=== PATIENT | male | born 1940 | race Caucasian/White ===

== ENCOUNTER 2017-12-12 06:14 | Emergency (ER) | payer MEDICARE ==
[~2017-12-12] VITALS: Ht 188 cm; Wt 102.1 kg
[~2017-12-12 06:14] MED LIST: HYDACE5325 PO
[2017-12-12 06:48] LABS: BASOPHILS ABSOLUTE AUTO 0.04 K/mm3 (0.00-0.23); BASOPHILS PERCENT AUTO 1 % (0-2); EOSINOPHILS ABSOLUTE AUTO 0.11 K/mm3 (0.00-0.68); EOSINOPHILS PERCENT AUTO 2 % (0-6); Hematocrit 44.3 % (37.0-53.0); Hemoglobin 15.2 g/dL (13.5-17.5); IMMATURE GRAN ABSOLUTE AUTO 0.03 K/mm3 (0.00-0.10); IMMATURE GRAN PERCENT AUTO 0 % (0-1); LYMPHOCYTES ABSOLUTE AUTO 1.22 K/mm3 (0.84-5.20); LYMPHOCYTES PERCENT AUTO 16 % (21-46); MONOCYTES ABSOLUTE AUTO 0.62 K/mm3 (0.16-1.47); MONOCYTES PERCENT AUTO 8 % (4-13); Mean Corpuscular HGB 31.8 pg (26.0-34.0); Mean Corpuscular HGB Conc 34.3 g/dL (31.5-36.5); Mean Corpuscular Volume 93 fL (80-100); Mean Platelet Volume 10.5 fL (9.1-12.4); NEUTROPHILS ABSOLUTE AUTO 5.41 K/mm3 (1.96-9.15); NEUTROPHILS PERCENT AUTO 73 % (41-73); Platelet Count 200 K/mm3 (150-400); RDW Coefficient Variation 12.3 % (11.7-14.2); RDW Standard Deviation 42.3 fL (35.1-46.3); Red Blood Cell Count 4.78 M/mm3 (4.30-5.90); White Blood Cell Count 7.43 K/mm3 (4.00-11.30)
[2017-12-12 07:08] LABS: Alanine Aminotransfer (ALT/SGP 38 U/L (12-78); Albumin/Globulin Ratio 1.1 (0.8-1.8); Alk Phos 98 U/L (50-136); Anion Gap 9 mmol/L (6-16); Aspartate Aminotrans (AST/SGOT 18 U/L (12-37); Bilirubin, Total 0.3 mg/dL (0.1-1.0); Blood Urea Nitrogen 20 mg/dL (8-24); Bun/Creatinine Ratio 20.6 (12.0-20.0); CO2, Blood 24 mmol/L (21-32); Calcium, Blood 9.1 mg/dL (8.5-10.1); Chloride, Blood 109 mmol/L (98-108); Creatinine, Blood 0.97 mg/dL (0.60-1.20); Globulin, Blood 3.7 g/dL (2.2-4.0); Glomerular Filtration Rate >60 (60-); Glucose, Blood 117 mg/dL (70-99); Potassium, Blood 3.8 mmol/L (3.5-5.5); Sodium, Blood 142 mmol/L (136-145); Total Protein, Blood 7.7 g/dL (6.4-8.2); Troponin I <0.015 ng/mL (0.000-0.040)
[2017-12-12] MEDS ORDERED: Protonix40 MG PO (10:47)
[2017-12-12] MEDS ORDERED: Norco 5-325 Ta1 EACH PO (10:47)
== END 2017-12-12 11:30 | disposition home or self-care (01) ==
LOC: ER 06:14
PROVIDERS: Emergency Medicine
DX: K21.9 Gastro-esophageal reflux disease without esophagitis (principal); M51.34 Other intervertebral disc degeneration, thoracic region; K44.9 Diaphragmatic hernia without obstruction or gangrene
CPT/HCPCS: 36415; 71046; 71260; 80053; 84484; 85025; 93005; 93010; 96374; 96375; 96376; 99284; J2270; J2405; J3010; Q9967

== ENCOUNTER → 2017-12-31 | Outpatient (CLI) | payer MEDICARE ==
[~2017-12-31] MED LIST changes: +Norco 5-325 Ta1 EACH PO; +Protonix40 MG PO
== END | disposition home or self-care (01) ==
LOC: LAB 14:31 → LAB SHORT 14:31
DX: D36.10 Benign neoplasm of peripheral nerves and autonomic nervous system, unspecified (principal)
CPT/HCPCS: 88305

== ENCOUNTER → 2018-08-04 | Outpatient (CLI) | payer MEDICARE | END | disposition home or self-care (01) | LOC: LAB SHORT 09:56 → PLD 09:56 | DX: D48.5 Neoplasm of uncertain behavior of skin (principal) | CPT/HCPCS: 88305 ==

== ENCOUNTER 2019-09-29 06:40 | Day surgery (SDC) | payer MEDICARE ==
[~2019-09-29] VITALS: Ht 185.4 cm; Wt 106.5 kg
== END 2019-09-29 09:08 | disposition home or self-care (01) ==
LOC: ORSCSDS 06:40
PROVIDERS: Internal Medicine Gastroenterology
PROC: 0DBK8ZX Excision of Ascending Colon, Via Natural or Artificial Opening Endoscopic, Diagnostic (ICD-10-PCS; principal; 2019-09-29 08:00)
PROC: 0DBH8ZX Excision of Cecum, Via Natural or Artificial Opening Endoscopic, Diagnostic (ICD-10-PCS; principal; 2019-09-29 08:00)
PROC: 0DBM8ZX Excision of Descending Colon, Via Natural or Artificial Opening Endoscopic, Diagnostic (ICD-10-PCS; principal; 2019-09-29 08:00)
DX: Z80.0 Family history of malignant neoplasm of digestive organs (principal); Z86.010 Personal history of colon polyps; Z12.11 Encounter for screening for malignant neoplasm of colon; D12.2 Benign neoplasm of ascending colon; D12.0 Benign neoplasm of cecum; D12.4 Benign neoplasm of descending colon; K57.30 Diverticulosis of large intestine without perforation or abscess without bleeding; Z87.891 Personal history of nicotine dependence; E78.5 Hyperlipidemia, unspecified; E11.51 Type 2 diabetes mellitus with diabetic peripheral angiopathy without gangrene
CPT/HCPCS: 88305; J0330; J0461; J2405; J2704; J7120

== ENCOUNTER → 2020-01-25 | Outpatient (CLI) | payer MEDICARE ==
[~2020-01-25] MED LIST changes: +ASPI81CH PO; +METO50ER PO
== END | disposition home or self-care (01) ==
LOC: LAB SHORT 11:40 → PLD 11:40
DX: D22.5 Melanocytic nevi of trunk (principal)
CPT/HCPCS: 88305

== ENCOUNTER 2020-01-27 06:53 | Day surgery (SDC) | payer MEDICARE ==
[~2020-01-27] VITALS: Ht 185.4 cm; Wt 104.0 kg
--- NOTE | 2020-01-27 12:02 | NUR ---
1130 PATIENT SITTING UP IN RECLINER CHAIR, AAOX3, VVS, SINUS MANJINDER WITH PVC NOTED. ARM BOARD AND TR BAND IN PLACE TO THE [facility] RAD[facility]. PATIENT INSTRUCTED NOT TO USES THE RIGHT ARM. NO PAIN NOTED FROM THE PATIENT.
--- NOTE | 2020-01-27 12:03 | NUR ---
1200 LUNCH SERVED AND PATIENT FEEDING SELF. ENCOURAGED NOT TO USE RIGHT WRIST TO FEED SELF.
--- NOTE | 2020-01-27 13:01 | NUR ---
10 CC OF AIR REMOVED OUT OF NOW DEFLATED RIGHT TR BAND OVER 15 MINUTES. SOFT WITH NO HEMATOMA AND NO PULSATILE BLEEDING. RIGHT RADIAL CARE INSTRUCTIONS REVIEWED WITH PT. CALL LIGHT IN REACH.
--- NOTE | 2020-01-27 13:10 | NUR ---
NO CHANGES TO DEFLATED RIGHT TR BAND SITE.
--- NOTE | 2020-01-27 13:58 | NUR ---
1345 PATIENT UP TO THE RESTROOM AND DRESSED SELF. ALL BELONGINGS GATHERED BY PATIENT. PIV REMOVED FROM THE LEFT AC AND TR BAND REMOVED, SITE CLEANED AND CLOTH DOT PLACED. NO HEMATOMA, NO BLEEDING, NO PAIN NOTED. NO BRUISING NOTED. REVIEWED AGAIN DISCHARGE INSTRUCTIONS, LIMITS ON MOVEMENT AND LIFTING. REPLACED WHITE ARMBOARD TO REMIND PATIENT NOT TO USE THE ARM FOR THE REST OF TODAY. DISCHARGE VIA WHEELCHAIR TO PRIVATE VEHICLE TO HOME.
== END 2020-01-27 14:00 | disposition home or self-care (01) ==
LOC: MHTC 06:53
PROC: B201YZZ Plain Radiography of Multiple Coronary Arteries using Other Contrast (ICD-10-PCS; principal; 2020-01-27)
PROC: 4A023N7 Measurement of Cardiac Sampling and Pressure, Left Heart, Percutaneous Approach (ICD-10-PCS; principal; 2020-01-27)
DX: I49.3 Ventricular premature depolarization (principal); I50.20 Unspecified systolic (congestive) heart failure; E78.5 Hyperlipidemia, unspecified; I34.0 Nonrheumatic mitral (valve) insufficiency; Z79.82 Long term (current) use of aspirin; Z87.891 Personal history of nicotine dependence; Z79.899 Other long term (current) drug therapy
CPT/HCPCS: 85347; 93005; 93010; 93458; 99152; C1769; C1894; J1644; J2250; J3010; J7030; Q9967

== ENCOUNTER 2020-05-14 09:33 | Emergency (ER) | payer MEDICARE ==
[~2020-05-14] VITALS: Ht 185.4 cm; Wt 102.1 kg
[2020-05-14] MEDS ORDERED: LOSA25 PO (09:49)
[2020-05-14 11:11] LABS: BASOPHILS ABSOLUTE AUTO 0.03 K/mm3 (0.00-0.23); BASOPHILS PERCENT AUTO 0 % (0-2); EOSINOPHILS PERCENT AUTO 1 % (0-6); Hematocrit 40.6 % (37.0-53.0); Hemoglobin 12.9 g/dL (13.5-17.5); IMMATURE GRAN ABSOLUTE AUTO 0.04 K/mm3 (0.00-0.10); IMMATURE GRAN PERCENT AUTO 0 % (0-1); LYMPHOCYTES ABSOLUTE AUTO 0.72 K/mm3 (0.84-5.20); LYMPHOCYTES PERCENT AUTO 7 % (21-46); MONOCYTES ABSOLUTE AUTO 0.99 K/mm3 (0.16-1.47); MONOCYTES PERCENT AUTO 10 % (4-13); Mean Corpuscular HGB 30.6 pg (26.0-34.0); Mean Corpuscular HGB Conc 31.8 g/dL (31.5-36.5); Mean Corpuscular Volume 96 fL (80-100); Mean Platelet Volume 10.6 fL (9.1-12.4); NEUTROPHILS ABSOLUTE AUTO 7.91 K/mm3 (1.96-9.15); NEUTROPHILS PERCENT AUTO 81 % (41-73); Platelet Count 181 K/mm3 (150-400); RDW Coefficient Variation 14.1 % (11.7-14.2); RDW Standard Deviation 49.1 fL (35.1-46.3); Red Blood Cell Count 4.21 M/mm3 (4.30-5.90); White Blood Cell Count 9.79 K/mm3 (4.00-11.30)
[2020-05-14 11:32] LABS: Alanine Aminotransfer (ALT/SGP 48 U/L (12-78); Albumin, Blood 3.3 g/dL (3.4-5.0); Albumin/Globulin Ratio 0.9 (0.8-1.8); Alk Phos 72 U/L (50-136); Anion Gap 5 mmol/L (6-16); Aspartate Aminotrans (AST/SGOT 18 U/L (12-37); Bilirubin, Total 0.7 mg/dL (0.1-1.0); Blood Urea Nitrogen 29 mg/dL (8-24); Bun/Creatinine Ratio 33.1 (12.0-20.0); CO2, Blood 26 mmol/L (21-32); Calcium, Blood 8.6 mg/dL (8.5-10.1); Chloride, Blood 109 mmol/L (98-108); Creatinine, Blood 0.88 mg/dL (0.60-1.20); Globulin, Blood 3.7 g/dL (2.2-4.0); Glomerular Filtration Rate >60 (60-); Glucose, Blood 105 mg/dL (70-99); Potassium, Blood 4.2 mmol/L (3.5-5.5); Sodium, Blood 140 mmol/L (136-145)
[2020-05-14] MEDS ORDERED: METPRE4DP PO (12:19)
[2020-05-14] MEDS ORDERED: HYDR1TAB94 PO (12:19)
== END 2020-05-14 14:17 | disposition home or self-care (01) ==
LOC: ER 09:33
PROVIDERS: Emergency Medicine
DX: M25.511 Pain in right shoulder (principal); M25.512 Pain in left shoulder; M25.561 Pain in right knee; M25.562 Pain in left knee; M25.551 Pain in right hip; M25.552 Pain in left hip; Z79.82 Long term (current) use of aspirin; Z79.899 Other long term (current) drug therapy; Z87.891 Personal history of nicotine dependence
CPT/HCPCS: 80053; 85025; 85651; 86140; 96374; 99284-25; J1100

== ENCOUNTER 2020-07-25 08:44 | Observation (INO) | payer MEDICARE ==
[~2020-07-25] VITALS: Ht 154.9 cm; Wt 101.4 kg
[~2020-07-25 08:44] MED LIST changes: -ASPI81CH PO; +Aspirin EC81 MG PO; +HYDR1TAB94 PO; +LOSA25 PO; +METPRE4DP PO
[2020-07-25] MEDS ORDERED: MELO7.5 PO (08:55)
[2020-07-25 09:08] LABS: BASOPHILS ABSOLUTE AUTO 0.04 K/mm3 (0.00-0.23); BASOPHILS PERCENT AUTO 0 % (0-2); EOSINOPHILS ABSOLUTE AUTO 0.11 K/mm3 (0.00-0.68); EOSINOPHILS PERCENT AUTO 1 % (0-6); Hematocrit 44.2 % (37.0-53.0); Hemoglobin 14.4 g/dL (13.5-17.5); IMMATURE GRAN ABSOLUTE AUTO 0.06 K/mm3 (0.00-0.10); IMMATURE GRAN PERCENT AUTO 1 % (0-1); LYMPHOCYTES ABSOLUTE AUTO 1.46 K/mm3 (0.84-5.20); LYMPHOCYTES PERCENT AUTO 12 % (21-46); MONOCYTES ABSOLUTE AUTO 1.05 K/mm3 (0.16-1.47); MONOCYTES PERCENT AUTO 9 % (4-13); Mean Corpuscular HGB Conc 32.6 g/dL (31.5-36.5); Mean Corpuscular Volume 98 fL (80-100); Mean Platelet Volume 10.4 fL (9.1-12.4); NEUTROPHILS ABSOLUTE AUTO 9.35 K/mm3 (1.96-9.15); NEUTROPHILS PERCENT AUTO 78 % (41-73); Platelet Count 165 K/mm3 (150-400); White Blood Cell Count 12.07 K/mm3 (4.00-11.30)
[2020-07-25 09:27] LABS: Alanine Aminotransfer (ALT/SGP 37 U/L (12-78); Albumin, Blood 3.4 g/dL (3.4-5.0); Albumin/Globulin Ratio 0.9 (0.8-1.8); Alk Phos 88 U/L (50-136); Anion Gap 6 mmol/L (6-16); Aspartate Aminotrans (AST/SGOT 16 U/L (12-37); Bilirubin, Total 0.8 mg/dL (0.1-1.0); Blood Urea Nitrogen 28 mg/dL (8-24); Bun/Creatinine Ratio 25.5 (12.0-20.0); CO2, Blood 24 mmol/L (21-32); Calcium, Blood 8.8 mg/dL (8.5-10.1); Chloride, Blood 112 mmol/L (98-108); Globulin, Blood 3.9 g/dL (2.2-4.0); Glomerular Filtration Rate >60 (60-); Glucose, Blood 110 mg/dL (70-99); Potassium, Blood 4.3 mmol/L (3.5-5.5); Sodium, Blood 142 mmol/L (136-145); Total Protein, Blood 7.3 g/dL (6.4-8.2); Troponin I 0.091 ng/mL (0.000-0.040)
[2020-07-25] MEDS ORDERED: LOSA50 PO (13:08)
[2020-07-25] MEDS ORDERED: METO100ER PO (13:08)
--- NOTE | 2020-07-25 17:08 | NUR ---
[facility] C[facility] INITIAL VISIT. - Called with referral to discuss code status and complete an advanced directive by pt's RN. Pt just admitted to medical floor from the ER and getting settled in. Visit made as pt expressed concern re: his desired code status. When I arrive he is dyspnic, resting in bed. FLUMER still in room providing care. He states he has no quesitons and wants his code status to be a DNR. He reports that this is on record with his PCP at [facility]. Pt's had left in the few minutes it took me to get to his room after RN called me. She evidently stated pt only wanted a DNR in "certain circumstances". Pt is very clear and relates experiences with multiple family members' illnesses and lingering with cancer or chronic conditions and he states he wants no part of that. He again requests DNR status. I assured him we would call our [facility] hospital Dr and report for order change to code status that agrees with his wishes. He is alert and oriented. His obvious anxiety appears related to worry over correct code status. I left some written material to give to and planned with pt to come back in the am and talk with his to answer any of her questions re: advanced care planning and his communicated wishes. Pt appreciative. Report given to RN. She will call Dr Martin for code status order change per pt's wishes. Pt denies pain at this time. Will fully assess for s/s and other means to be of help tomorrow.
--- NOTE | 2020-07-25 19:13 | NUR ---
SHIFT SUMMARY- PT IS A/O, PLESANT AND COOPERATIVE. HE WAS AN ER ADMIT THIS AFTERNOON ARRIVED TO THE UNIT AT 1510. HE WAS ORIENTED TO THE ROOM. AT BEDSIDE. SPOKE WITH DR. TOMLIN ABOUT ELEVATED PULSE AND DISCUSSED PLAN FOR PE TREATMENT, LOVONOX RECIEVED IN ED, FURTHER TREATMENT TOMORROW FOR PE. PT CODE CHANGED TO DNR. PT SPOKE WITH [facility]ATIVE CARE NURSE, AND MYSELF AND WAS CLEAR ABOUT HIS WISHES, THIS WAS DISCUSSED WITH DR. TOMLIN.
--- NOTE | 2020-07-26 04:41 | NUR ---
SHIFT SUMMARY PT HAS RESTED MOST OF THE NIGHT WITHOUT EVENT. PT SOB WITH EXERTION, 2L O2 IN PLACE. PT QUICKLY RECOVERS WITH REST. NO HEMOTYPSIS. LUNGS CLEAR WITH AUSCULATION. XARELTO STARTED HS ORDERED. TELE IN PLACE AFIB RATE 80-100'S. IVF INFUSING. PT HAS BEEN SBA TO THE BSC. A/OX4, BUT [place]. HAS DENIED NEEDS MOST OF THE NIGHT. BED IN LOWEST POSITION, CALL LIGHT WITHIN REACH.
[2020-07-26 05:44] LABS: BASOPHILS ABSOLUTE AUTO 0.04 K/mm3 (0.00-0.23); BASOPHILS PERCENT AUTO 0 % (0-2); EOSINOPHILS ABSOLUTE AUTO 0.07 K/mm3 (0.00-0.68); EOSINOPHILS PERCENT AUTO 1 % (0-6); Hematocrit 41.6 % (37.0-53.0); Hemoglobin 13.3 g/dL (13.5-17.5); IMMATURE GRAN ABSOLUTE AUTO 0.05 K/mm3 (0.00-0.10); IMMATURE GRAN PERCENT AUTO 1 % (0-1); LYMPHOCYTES ABSOLUTE AUTO 1.45 K/mm3 (0.84-5.20); LYMPHOCYTES PERCENT AUTO 14 % (21-46); MONOCYTES ABSOLUTE AUTO 0.93 K/mm3 (0.16-1.47); MONOCYTES PERCENT AUTO 9 % (4-13); Mean Corpuscular HGB 31.4 pg (26.0-34.0); Mean Corpuscular Volume 98 fL (80-100); Mean Platelet Volume 10.8 fL (9.1-12.4); NEUTROPHILS ABSOLUTE AUTO 8.19 K/mm3 (1.96-9.15); NEUTROPHILS PERCENT AUTO 76 % (41-73); Platelet Count 173 K/mm3 (150-400); RDW Coefficient Variation 15.3 % (11.7-14.2); RDW Standard Deviation 54.9 fL (35.1-46.3); Red Blood Cell Count 4.23 M/mm3 (4.30-5.90); White Blood Cell Count 10.73 K/mm3 (4.00-11.30)
[2020-07-26 06:37] LABS: Alanine Aminotransfer (ALT/SGP 31 U/L (12-78); Albumin/Globulin Ratio 0.8 (0.8-1.8); Alk Phos 79 U/L (50-136); Anion Gap 8 mmol/L (6-16); Aspartate Aminotrans (AST/SGOT 15 U/L (12-37); Bilirubin, Total 0.7 mg/dL (0.1-1.0); Blood Urea Nitrogen 35 mg/dL (8-24); Bun/Creatinine Ratio 33.7 (12.0-20.0); CO2, Blood 21 mmol/L (21-32); Calcium, Blood 8.8 mg/dL (8.5-10.1); Chloride, Blood 113 mmol/L (98-108); Creatinine, Blood 1.04 mg/dL (0.60-1.20); Globulin, Blood 3.6 g/dL (2.2-4.0); Glomerular Filtration Rate >60 (60-); Glucose, Blood 110 mg/dL (70-99); Magnesium, Blood 2.3 mg/dL (1.6-2.4); Phosphorus, Blood 3.6 mg/dL (2.5-4.9); Potassium, Blood 4.6 mmol/L (3.5-5.5); Sodium, Blood 142 mmol/L (136-145); Total Protein, Blood 6.6 g/dL (6.4-8.2)
--- NOTE | 2020-07-26 11:29 | NUR ---
PT PLEASANT COOP A/OX3. DENIES PAIN OR SOB. H/R REG, NO MURMER NOTED. PER TELE S TACH AT 107 WITH 107. LUNGS CLEAR T/O. DENIES PAIN OR SOB IN CHEST. ON 2L O2 AT THIS TIME. RESP EASY, UNLABORED. BT X4 LAST BM YEST PER PT. VOIDS INDEPENDANT TO BATHROOM. BED IN LOW POSITION, CALL LITE IN REACH, CALLS APPROP
[2020-07-26] MEDS ORDERED: XARELTO15 MG PO (14:00)
--- NOTE | 2020-07-26 15:00 | NUR ---
DISCHARGE REVIEWED WITH PT. HE STATES VERBAL UNDERSTANDING MEDS AND INST. IV PULLED INTACT. TELE REMOVED AND RETURNED. WHEELED TO DOOR BY AIDE. 1500
== END 2020-07-26 15:00 | disposition home or self-care (01) ==
LOC: ER 08:44 → MEDS 08:45 → ER 13:08 → MEDS 13:08
PROVIDERS: Emergency Medicine; ADMIT Hospitalist
DX: I26.99 Other pulmonary embolism without acute cor pulmonale (principal); R00.2 Palpitations; E78.5 Hyperlipidemia, unspecified; Z87.891 Personal history of nicotine dependence; Z79.899 Other long term (current) drug therapy
CPT/HCPCS: 36415; 71045; 71260; 80053; 83735; 83880; 84100; 84484; 85025; 85379; 93005; 93010; 96372; 97110; 97161; 99285-25; A9270-GY; G0378; J1650; J7030; Q9967

== ENCOUNTER → 2021-10-29 | Outpatient (CLI) | payer MEDICARE ==
[~2021-10-29] MED LIST changes: +LOSA50 PO; +MELO7.5 PO; +METO100ER PO; +XARELTO15 MG PO
== END | disposition home or self-care (01) ==
LOC: LAB SHORT 11:08
DX: D22.5 Melanocytic nevi of trunk (principal)
CPT/HCPCS: 88305

== ENCOUNTER 2023-04-03 12:04 | Day surgery (SDC) | payer MEDICARE ==
[~2023-04-03] VITALS: Ht 185.4 cm; Wt 91.1 kg
[2023-04-03] MEDS ORDERED: MELO7.5 (12:49)
[2023-04-03 14:06] VITALS: BP 135/73
== END 2023-04-03 14:25 | disposition home or self-care (01) ==
LOC: ORSCSDS 12:04
PROVIDERS: Surgery
PROC: 0DBM8ZX Excision of Descending Colon, Via Natural or Artificial Opening Endoscopic, Diagnostic (ICD-10-PCS; principal; 2023-04-03 13:30)
DX: Z12.11 Encounter for screening for malignant neoplasm of colon (principal); Z86.010 Personal history of colon polyps; Z80.0 Family history of malignant neoplasm of digestive organs; D12.4 Benign neoplasm of descending colon; Z86.711 Personal history of pulmonary embolism; F17.210 Nicotine dependence, cigarettes, uncomplicated; Z79.82 Long term (current) use of aspirin; Z79.899 Other long term (current) drug therapy
CPT/HCPCS: 88305; J2704; J7120